=== PATIENT | female | born 1975 | race American Indian/Alaskan Native ===

== ENCOUNTER 2019-05-15 10:21 | Emergency (ER) | payer SELFPAY ==
--- NOTE | 2019-05-15 11:37 | Emergency Department Report ---
Blank Doc - Documentation Documentation: 43-year-old female that presents with fever, tachycardia, and dental pain with cough. This initial assessment/diagnostic orders/clinical plan/treatment(s) is/are subject to change based on patient's health status, clinical progression and re- assessment by fellow clinical providers in the ED. Further treatment and workup at subsequent clinical providers discretion. Patient/guardians urged not to elope from the ED as their condition may be serious if not clinically assessed and managed. Initial orders include: 1- Patient sent to [facility] for further evaluation and treatment 2- CXR
--- NOTE | 2019-05-15 12:19 | XRay Report ---
CHEST 2 VIEWS INDICATION / CLINICAL INFORMATION: cough. COMPARISON: None available. FINDINGS: SUPPORT DEVICES: None. HEART / MEDIASTINUM: No significant abnormality. LUNGS / PLEURA: No significant pulmonary or pleural abnormality. No pneumothorax. ADDITIONAL FINDINGS: No significant additional findings. IMPRESSION: No acute finding. Signer Name: Emile Stringer MD Signed: 05/15/2019 12:14 PM Workstation Name: [id number]
--- NOTE | 2019-05-15 13:29 | Emergency Department Report ---
ED ENT HPI - General Chief complaint: Dental/Oral Stated complaint: TOOTH PAIN Time Seen by Provider: 05/15/19 11:37 Source: patient Mode of arrival: Ambulatory Limitations: No Limitations - History of Present Illness Initial comments: 43-year-old female complaining of dental pain and facial swelling. She has a history of fractured tooth #30. Patient states that last night she started developing gum swelling and pain. She denies fever no cough no other symptoms no difficulty swallowing. MD complaint: tooth pain Location: tooth # (#30) Improves with: none Worsens with: eating Associated Symptoms: gum swelling, toothache. denies: fever, cough - Related Data Previous Rx's Medication Instructions Recorded Last Taken Type Acetaminophen/Codeine [Tylenol 1 tab PO Q6H PRN #15 tab 05/15/19 Unknown Rx /Codeine # 3 tab] Amoxicillin [Trimox CAP] 500 mg PO Q8H 10 Days #30 capsule 05/15/19 Unknown Rx Allergies Allergy/AdvReac Type Severity Reaction Status Date / Time No Known Allergies Allergy Unverified 05/15/19 10:45 ED Dental HPI - General Chief complaint: Dental/Oral Stated complaint: TOOTH PAIN Time Seen by Provider: 05/15/19 11:37 Source: patient Mode of arrival: Ambulatory Limitations: No Limitations - History of Present Illness MD complaint: tooth pain - Related Data Previous Rx's Medication Instructions Recorded Last Taken Type Acetaminophen/Codeine [Tylenol 1 tab PO Q6H PRN #15 tab 05/15/19 Unknown Rx /Codeine # 3 tab] Amoxicillin [Trimox CAP] 500 mg PO Q8H 10 Days #30 capsule 05/15/19 Unknown Rx Allergies Allergy/AdvReac Type Severity Reaction Status Date / Time No Known Allergies Allergy Unverified 05/15/19 10:45 ED Review of Systems ROS: Stated complaint: TOOTH PAIN Other details as noted in HPI Comment: All other systems reviewed and negative Constitutional: denies: chills, fever ENT: dental pain Respiratory: no symptoms reported Cardiovascular: denies: chest pain, dyspnea on exertion Endocrine: no symptoms reported Gastrointestinal: as per HPI ED Past Medical Hx - Past Medical History Previous Medical History?: Yes Additional medical history: stomach ulcers - Surgical History Past Surgical History?: Yes Additional Surgical History: D and C - Social History Smoking Status: Current Every Day Smoker Substance Use Type: None - Medications Home Medications: Home Medications Medication Instructions Recorded Confirmed Last Taken Type Acetaminophen/Codeine [Tylenol 1 tab PO Q6H PRN #15 tab 05/15/19 Unknown Rx /Codeine # 3 tab] Amoxicillin [Trimox CAP] 500 mg PO Q8H 10 Days #30 capsule 05/15/19 Unknown Rx ED Physical Exam - General Limitations: No Limitations General appearance: alert, in no apparent distress - Head Head exam: Present: atraumatic - Eye Eye exam: Present: normal appearance - ENT ENT exam: Present: TM's normal bilaterally, other (fractured tooth #30, gum tenderness around fractured tooth) - Respiratory Respiratory exam: Present: normal lung sounds bilaterally - Cardiovascular Cardiovascular Exam: Present: regular rate - Extremities Exam Extremities exam: Present: normal inspection - Back Exam Back exam: Present: normal inspection - Neurological Exam Neurological exam: Present: alert, oriented X3 - Psychiatric Psychiatric exam: Present: normal affect - Skin Skin exam: Present: warm, dry ED Course Vital Signs 05/15/19 10:43 Temperature 99.3 F Pulse Rate 111 H Respiratory 20 Rate Blood Pressure 124/86 [Right] O2 Sat by Pulse 99 Oximetry Critical Care Time: No Critical care attestation.: If time is entered above; I have spent that time in minutes in the direct care of this critically ill patient, excluding procedure time. ED Disposition Clinical Impression: Dental abscess Disposition: TO HOME OR SELFCARE Is pt being admited?: No Does the pt Need Aspirin: No Condition: Stable Instructions: Dental Abscess (ED), Dental Caries (ED) Additional Instructions: Follow-up with the dentist as soon as possible. Take all medications as prescribed. Follow-up [facility] [phone]. [facility] [phone] [facility] [phone] Prescriptions: Amoxicillin [Trimox CAP] 500 mg PO Q8H 10 Days #30 capsule Acetaminophen/Codeine [Tylenol /Codeine # 3 tab] 1 tab PO Q6H PRN #15 tab PRN Reason: Pain , Severe (7-10) Referrals: PRIMARY CARE, [Primary Care Provider] - 3-5 Days Time of Disposition: 13:41
[2019-05-15 13:46] VITALS: BP 121/81
== END 2019-05-15 13:45 | disposition home or self-care (01) ==
LOC: ED 10:21
DX: K04.7 Periapical abscess without sinus (principal); F17.200 Nicotine dependence, unspecified, uncomplicated; Z98.890 Other specified postprocedural states; Z79.2 Long term (current) use of antibiotics; Z79.899 Other long term (current) drug therapy
CPT/HCPCS: 71046; 99283

== ENCOUNTER 2021-10-30 23:14 | Emergency (ER) | payer BC ==
--- NOTE | 2021-10-31 00:21 | XRay Report ---
LEFT ANKLE 3 VIEWS 0009 INDICATION: INJURY COMPARISON: None available. FINDINGS: Diffuse soft tissue swelling is seen. No fractures or dislocations are noted. Signer Name: Pepito Levine MD Signed: 10/31/2021 12:17 AM Workstation Name: [id number]
[2021-10-31 05:15] VITALS: BP 127/85
[2021-10-31] MEDS ORDERED: HYDROcodone/ACETAMINOPHEN 5-325 MG TAB PO STA (06:48)
== END 2021-10-31 07:30 | disposition home or self-care (01) ==
LOC: ED 23:14
DX: S99.912A Unspecified injury of left ankle, initial encounter (principal); Z53.21 Procedure and treatment not carried out due to patient leaving prior to being seen by health care provider; X58.XXXA Exposure to other specified factors, initial encounter; Y93.89 Activity, other specified; Y92.89 Other specified places as the place of occurrence of the external cause; Y99.8 Other external cause status
CPT/HCPCS: 99283